=== PATIENT | male | born 1960 | race Caucasian/White ===

== ENCOUNTER 2019-03-06 20:57 | Emergency (ER) | payer MEDICAID ==
[~2019-03-06] VITALS: Ht 180.3 cm; Wt 104.3 kg
[2019-03-07] MEDS ORDERED: DexAMETHasone SOD PHOS 10MG/1ML VIAL INJ IM ONE
[2019-03-07] MEDS ORDERED: ONDANSETRON ODT 4 MG TAB PO ONE
[2019-03-07] MEDS ORDERED: MORPHINE SULFATE 10 MG/ML INJ 1ML SDV IM ONE
[2019-03-07 00:48] VITALS: BP 149/90
== END 2019-03-07 00:58 | disposition home or self-care (01) ==
LOC: ER 21:00
DX: M54.42 Lumbago with sciatica, left side (principal); M54.41 Lumbago with sciatica, right side; J44.9 Chronic obstructive pulmonary disease, unspecified; I10 Essential (primary) hypertension
CPT/HCPCS: 72100; 96372; 99283; J1100; J2270; Q0162

== ENCOUNTER 2019-06-02 12:09 | Emergency (ER) | payer MEDICAID ==
[~2019-06-02] VITALS: Ht 180.3 cm; Wt 104.3 kg
[2019-06-02 12:43] VITALS: BP 140/110
[2019-06-02] MEDS ORDERED: KETOROLAC TROMETH 60MG/2ML VIAL IM ONE (17:45)
== END 2019-06-02 17:48 | disposition home or self-care (01) ==
LOC: ER 12:17
DX: M79.2 Neuralgia and neuritis, unspecified (principal); M79.605 Pain in left leg; J44.9 Chronic obstructive pulmonary disease, unspecified; I10 Essential (primary) hypertension
CPT/HCPCS: 93971; 96372; 99284; J1885

== ENCOUNTER 2020-12-14 09:35 | Emergency (ER) | payer MEDICAID ==
[~2020-12-14] VITALS: Ht 182.9 cm; Wt 113.4 kg
[2020-12-14 10:25] VITALS: BP 156/80
[2020-12-14] MEDS ORDERED: METHOCARBAMOL 500 MG TAB PO ONE (10:30)
== END 2020-12-14 11:17 | disposition home or self-care (01) ==
LOC: ER 09:35 → EDBD 09:35 → ER 11:17
DX: M54.16 Radiculopathy, lumbar region (principal)
CPT/HCPCS: 72131; 93005